=== PATIENT | male | born 1950 | race African-American/Black ===

== ENCOUNTER 2023-12-18 00:11 | Emergency (ER) | payer MEDICAID ==
[~2023-12-18] VITALS: Ht 172.7 cm; Wt 72.0 kg
[2023-12-18 00:14] VITALS: TEMP 98.4
[2023-12-18 00:50] VITALS: BP 137/99; PULSE 54; RESP 20; O2SAT 100
[2023-12-18 01:06] LABS: EOSINOPHILS % 9.4 % (0.0-5.0); HEMATOCRIT. 41.1 % (42.0-52.0); HEMOGLOBIN. 13.7 g/dL (14.0-18.0); LYMPHOCYTES % 21.7 % (20.0-50.0); MEAN CORPUSCULAR HEMOGLOBIN 28.8 pg (28.0-32.0); MEAN CORPUSCULAR HGB CONC 33.4 g/dL (31.0-37.0); MEAN CORPUSCULAR VOLUME 86.2 fL (80.0-94.0); MEAN PLATELET VOLUME 8.1 fl (7.4-10.4); MONOCYTES % 8.2 % (2.0-8.0); NEUTROPHILS % 59.7 % (40.0-76.0); PLATELET 296 x1000/uL (130-400); RED BLOOD CELL COUNT 4.77 mill/uL (4.7-6.1); RED CELL DISTRIBUTION WIDTH 17.1 % (11.6-14.6); WHITE BLOOD COUNT 4.8 x1000/uL (4.5-11.0)
[2023-12-18 01:11] LABS: CHLORIDE 109 mEq/L (98-107); POTASSIUM 3.6 mEq/L (3.5-5.1); SODIUM 142 mEq/L (136-145)
[2023-12-18 01:12] LABS: CARBON DIOXIDE 23 mEq/L (21-32)
[2023-12-18 01:13] LABS: CALCIUM 9.9 mg/dL (8.7-10.4)
[2023-12-18 01:17] LABS: CREATININE 1.1 mg/dL (0.6-1.3); GLUCOSE 125 mg/dL (70-105)
[2023-12-18 01:18] LABS: ETHANOL BLOOD 72 mg/dL (<10); UREA NITROGEN BLOOD 21 mg/dL (9-23)
[2023-12-18 01:19] LABS: ALANINE AMINOTRANSFERASE 33 IU/L (10-49); ALBUMIN 4.6 g/dL (3.2-4.8); ASPARTATE AMINOTRANSFERASE 33 IU/L (<34)
[2023-12-18 01:20] LABS: BILIRUBIN DIRECT 0.1 mg/dL (<=3.0); BILIRUBIN TOTAL 0.4 mg/dL (0.1-1.0); PROTEIN TOTAL 7.5 g/dL (6.0-8.3)
== END 2023-12-18 04:00 | disposition left against medical advice (07) ==
LOC: ER 00:19
DX: R51.9 Headache, unspecified (principal); E78.00 Pure hypercholesterolemia, unspecified; E11.9 Type 2 diabetes mellitus without complications; Z53.21 Procedure and treatment not carried out due to patient leaving prior to being seen by health care provider
CPT/HCPCS: 36415; 80048; 80076; 80320; 82962; 85025; 99284; G0480